=== PATIENT | female | born 1975 | race Hispanic/Latino ===

== ENCOUNTER 2016-09-06 07:17 | Day surgery (SDC) | payer OTHER ==
[2016-01-28 08:13] VITALS: BMI 29.2
[2016-09-06] MEDS ORDERED: Propofol 10 mg/ml Inj (20 ML) ONE (09:34)
--- NOTE | 2016-09-06 09:43 | CP.SDSHP ---
Same Day Surgery H & P - History Proposed Procedure: EGD Pre-Op Diagnosis: SEE NOTES - Previous Medical/Surgical History Cardiac: Other Pulmonary: Asthma Misc: Other Pain: 6.Severe Pain - Allergies Allergies: Allergies Penicillins Allergy (Verified 09/06/16 07:57) RASH - Physical Exam General Appearance: N Vital Signs: Vital Signs 09/06/16 09/06/16 07:55 09:39 Temperature 97.5 F L 97.5 F L Pulse Rate 77 77 Respiratory 19 19 Rate Blood Pressure 109/70 109/70 O2 Sat by Pulse 97 97 Oximetry Neuro: WNL Heart: WNL Lungs: Other GI: Other - {Optional Preform as Required} Breast: WNL Abdomen: Other Rectal: Other Integument: WNL : WNL Ortho: WNL ENT: WNL - Impression Pt. Evaluated Today:Candidate for Anesthesia & Procedure: Yes - Date & Time Time: 09:43 Short Stay Discharge - Short Stay Discharge Admitting Diagnosis/Reason for Visit: DYSPEPSIA Disposition: HOME/ ROUTINE
[2016-09-06] MEDS ORDERED: Lactated Ringer's 1,000 ML IV SCH (09:45)
[2016-09-06] MEDS ORDERED: Pantoprazole 40 mg EC Tab PO ONE (10:00)
[2016-09-06] MEDS ORDERED: Belladonna-Phenobarbital PO ONE (10:00)
[2016-09-06] MEDS ORDERED: Sucralfate 1 gm/10 ml Oral Susp UD PO ONE (10:00)
[2016-09-06 10:21] VITALS: TEMP 97.8; O2SAT 100
[2016-09-06 11:04] VITALS: BP 124/70; PULSE 57; RESP 13
== END 2016-09-06 11:02 | disposition home or self-care (01) ==
LOC: C.ENDO 07:17
PROVIDERS: ATTEND Specialist
DX: K29.70 Gastritis, unspecified, without bleeding (principal); K44.0 Diaphragmatic hernia with obstruction, without gangrene; K29.81 Duodenitis with bleeding
CPT/HCPCS: 43239; 84703; 88305; 88342; J2704; J3010; J7120

== ENCOUNTER 2018-06-05 06:23 | Day surgery (SDC) | payer OTHER ==
[2018-06-04 09:43] VITALS: BMI 32.9
[2018-06-05 06:45] VITALS: PULSE 68; RESP 19; TEMP 97.6; O2SAT 98
--- NOTE | 2018-06-05 07:54 | CP.SDSHP ---
Same Day Surgery H & P - History Proposed Procedure: EGD Pre-Op Diagnosis: SEE NOTES - Previous Medical/Surgical History Pulmonary: Asthma Neuro: Other Pain: 4.Moderate Pain - Allergies Allergies: Allergies Penicillins Allergy (Mild, Verified 06/04/18 09:43) RASH - Physical Exam General Appearance: N Vital Signs: Vital Signs 06/05/18 06:40 Temperature 97.6 F Pulse Rate 68 Respiratory 19 Rate Blood Pressure 137/73 O2 Sat by Pulse 98 Oximetry Mental Status: Alert & Oriented x3 Neuro: WNL Heart: WNL Lungs: Other GI: Other - {Optional Preform as Required} Breast: WNL Abdomen: Other Rectal: Other Integument: WNL : WNL Ortho: WNL ENT: Other - Impression Pt. Evaluated Today:Candidate for Anesthesia & Procedure: Yes - Date & Time Time: 07:54 Short Stay Discharge - Short Stay Discharge Admitting Diagnosis/Reason for Visit: FUNCTIONAL DYSPEPSIA Disposition: HOME/ ROUTINE
[2018-06-05] MEDS ORDERED: Midazolam 2 MG/2 ML VIAL ONE (07:55)
[2018-06-05] MEDS ORDERED: Propofol 10 mg/ml Inj (20 ML) ONE (07:55)
[2018-06-05] MEDS ORDERED: Lidocaine Hydrochloride 5 ML INJ ONE (08:05)
[2018-06-05] MEDS ORDERED: Belladonna-Phenobarbital PO ONE (08:30)
[2018-06-05 08:48] VITALS: BP 123/69
== END 2018-06-05 09:09 | disposition home or self-care (01) ==
LOC: C.ENDO 06:23
PROVIDERS: ATTEND Specialist
DX: K29.50 Unspecified chronic gastritis without bleeding (principal); K29.80 Duodenitis without bleeding; K44.9 Diaphragmatic hernia without obstruction or gangrene; B96.81 Helicobacter pylori [H. pylori] as the cause of diseases classified elsewhere
CPT/HCPCS: 43239; 84703; 88305; 88342; J2250; J2704; J2930; J3010